=== PATIENT | female | born 1985 ===

== ENCOUNTER 2018-03-01 10:35 | Emergency (ER) | payer OTHER ==
[2018-03-01 10:43] VITALS: BP 135/82; PULSE 137; TEMP 98; O2SAT 100; BMI 20.4
[2018-03-01] MEDS ORDERED: Tdap Vaccine 0.5 ml Vial (10-64 yrs) IM ONE ×2 (13:21→13:32)
--- NOTE | 2018-03-01 13:30 | ED PDOC ---
HPI: Female Pain Time Seen by Provider: 03/01/18 11:27 Chief Complaint (Nursing): Female Genitourinary Chief Complaint (Provider): Female Genitourinary History Per: Patient History/Exam Limitations: no limitations Onset/Duration Of Symptoms: Days (x10), Persistent Current Symptoms Are (Timing): Still Present Additional Complaint(s): Patient reports vaginal pain and swelling that began 10 days ago. Referred to ED by Fanny MUNOZ. Otherwise: (-) fever or chills, (-) dysuria, (-) hematuria, (-) trauma. Past Medical History Reviewed: Historical Data, Nursing Documentation, Vital Signs Vital Signs: Last Vital Signs Temp 98 F 03/01/18 10:42 Pulse 137 H 03/01/18 10:42 Resp BP 135/82 03/01/18 10:42 Pulse Ox 100 03/01/18 10:42 - Medical History PMH: HTN Denies: Chronic Kidney Disease - Surgical History Surgical History: No Surg Hx - Family History Family History: States: Unknown Family Hx - Home Medications Home Medications: Ambulatory Orders Medication Instructions Recorded Cephalexin [Keflex] 500 mg PO Q6 #28 capsule 03/01/18 Sulfamethoxazole/Trimethoprim 2 tab PO BID #28 tab 03/01/18 [Bactrim DS 800 mg-160 mg] - Allergies Allergies/Adverse Reactions: Allergies Allergy/AdvReac Type Severity Reaction Status Date / Time Penicillins Allergy SHORTNESS Verified 03/01/18 11:33 OF BREATH Review of Systems ROS Statement: Except As Marked, All Systems Reviewed And Found Negative Constitutional: Negative for: Fever, Chills Genitourinary Female: Positive for: Other (vaginal pain and swelling). Negative for: Dysuria, Hematuria Physical Exam - Reviewed Nursing Documentation Reviewed: Yes Vital Signs Reviewed: Yes - Physical Exam Comments: SKIN: Warm, dry; (-) cyanosis. ABDOMEN AND GI: Soft, (-) tenderness. PELVIC: (+) Large right-sided Bartholin's cyst on labia; (-) vesicles, (-) ulcers. (-) vaginal discharge; (-) cervical discharge, (-) bleeding, (-) pain on cervical motion. A female RN / tech canvas shrinker was present with me during the entire examination. EXTREMITIES: (-) deformity. - ECG O2 Sat by Pulse Oximetry: 100 (RA) Pulse Ox Interpretation: Normal Medical Decision Making Medical Decision Making: Initial Impression: Bartholin's cyst Initial Plan: * Adacel 0.5ml IM Scribe Attestation: Documented by Brenna Cedeno, acting as a scribe for Khushi Saha PA-C. Provider Scribe Attestation: All medical record entries made by the Scribe were at my direction and personally dictated by me. I have reviewed the chart and agree that the record accurately reflects my personal performance of the history, physical exam, medical decision making, and the department course for this patient. I have also personally directed, reviewed, and agree with the discharge instructions and disposition. Procedures - Incision and Drainage Site: R labia majora Blade Size: 11 I & D Procedure: betadine prep, sterile drapes applied, sterile dressing applied Progress: Lidocaine 1% was administered to the site, 40 cc of purulent material drained from bartholin's gland abscess by YING. Would packing and clean dressing applied. Patient tolerated the procedure well. Disposition - Clinical Impression Clinical Impression: Bartholin's gland abscess - Patient ED Disposition Is Patient to be Admitted: No Counseled Patient/Family Regarding: Diagnosis, Need For Followup, Rx Given - Disposition Referrals: [facility] [Outside] Serafin Junior [Staff Provider] - Disposition: Routine/Home Disposition Time: 13:30 Condition: STABLE Additional Instructions: Thank you for letting us take care of you today. You were treated for bartholin' s gland abscess. The emergency medical care you received today was directed at your acute symptoms. If you were prescribed any medication, please fill it and take as directed. It may take several days for your symptoms to resolve. Return to the Emergency Department if your symptoms worsen, do not improve, or if you have any other problems. Please call one of the physicians/clinics you have been referred to that are listed on the Patient Visit Information form that is included in your discharge packet. Bring any paperwork you were given at discharge with you along with any medications you are taking to your follow up visit. Our treatment cannot replace ongoing medical care by a primary care provider (PCP) outside of the emergency department. Thank you for allowing the [facility] team to be part of your care today. Prescriptions: Cephalexin [Keflex] 500 mg PO Q6 #28 capsule Sulfamethoxazole/Trimethoprim [Bactrim DS 800 mg-160 mg] 2 tab PO BID #28 tab Instructions: Abscess Incision and Drainage, Bartholin's Gland Cyst Forms: [facility] (Chinese), [facility] ED School/Work Excuse
== END 2018-03-01 14:09 | disposition home or self-care (01) ==
LOC: H.ER 10:35
DX: N75.1 Abscess of Bartholin's gland (principal); I10 Essential (primary) hypertension; Z88.0 Allergy status to penicillin; Z23 Encounter for immunization